=== PATIENT | female | born 1980 ===

== ENCOUNTER → 2021-09-17 | Outpatient (CLI) | payer MEDICARE, OTHER ==
[2021-09-18 15:12] LABS: HPV 16 Negative (Negative); HPV 18 Negative (Negative); HPV OTHER HR TYPES Negative (Negative)
== END ==
LOC: LAB SHORT 10:30 → LAB 10:30
PROVIDERS: Registered Nurse Community Health
DX: Z12.4 Encounter for screening for malignant neoplasm of cervix (principal); N89.8 Other specified noninflammatory disorders of vagina
CPT/HCPCS: 87070; 87205; 87624; G0123